=== PATIENT | female | born 1960 | race Caucasian/White ===

== ENCOUNTER 2025-04-18 10:02 | Emergency (ER) | payer OTHER, SELFPAY ==
[2025-04-18 10:07] VITALS: BP 132/69
--- NOTE | 2025-04-18 10:20 | ED.GENMED ---
History of Present Illness
<Jhonathan Bolden PA-C - Last Filed: 04/18/25 13:41>
General
Chief Complaint: Catheter/Tube Problem
Source: patient and records
Time Seen by Provider: 04/18/25 10:09
History of Present Illness
History of Present Illness:
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
tubes she had in place fell out. Patient states that she was supposed to have a follow-up visit on 04/22 for one of the tubes to be removed but is unsure as to which tube was supposed to be removed. Currently denying pain, fevers. has
been doing trach care at home and patient suctions the trach herself.
Past History
<Jhonathan Bolden PA-C - Last Filed: 04/18/25 13:41>
Past History
ED Past Medical History: Cancer and Other (C. Diff)
ED Past Surgical History: Other (Total laryngectomy)
Social History
Tobacco: Smoker
Alcohol: Daily
Drug: None
Personal: Single
Living: with family
Review of Systems
<Jhonathan Bolden PA-C - Last Filed: 04/18/25 13:41>
Review of Systems
All Other Systems: ROS reviewed and negative except as documented in HPI and ROS
Phy Exam
<Jhonathan Bolden PA-C - Last Filed: 04/18/25 13:41>
Physical Exam
Physical Exam:
GENERAL: Alert , in no apparent distress
HEAD: Normocephalic atraumatic
EYE: conjunctiva clear
NECK: Supple, trach in place with clear secretions, well-healing incision to the left lateral neck
ENT: o/p clr, mmm. There is portion of the Dobbhoff drain in patient's left nare and outside of the mouth but no active bleeding
CARDIAC: Regular rate and rhythm
LUNGS: Clear breath sounds bilaterally, no acute respiratory distress, no wheezes/rales/rhonchi
ABDOMEN: PEG tube in place, Scant serosanguineous drainage noted in ESTELA tube
NEUROLOGICAL: Alert and oriented
SKIN: Warm and dry, skin intact.
MUSCULOSKELETAL: well perfused.
PSYCH: Normal and appropriate interaction.
Scores
<Jhonathan Bolden PA-C - Last Filed: 04/18/25 13:41>
Heart Failure Risk
Heart Failure Risk Score: Not Applicable
Heart Score for Chest Pain Patients
STEMI patient?: Not applicable
Withdrawal Assessment of Alcohol
Withdrawal Assessment Completed?: Not applicable
Course
<Jhonathan Bolden PA-C - Last Filed: 04/18/25 13:41>
Orders/Labs/Results
Orders:
Orders
04/18/25 10:15
Ondansetron Injectable [Zofran] 4 mg IV NOW STA
04/18/25 10:47
Ondansetron Orally Disint [Zofran Odt (Orally Disintegrating)] 4 mg PO NOW STA
04/18/25 10:48
Ondansetron HCl [Zofran] 4 mg .ROUTE .[facility]
Vital Signs
Initial and Last Documented VS:
Initial Vital Signs
Temp Pulse Resp BP Pulse Ox
98.1 F 77 16 132/69 97
04/18/25 10:07 04/18/25 10:07 04/18/25 10:07 04/18/25 10:07 04/18/25 10:07
Last Documented Vital Signs
Temp Pulse Resp BP Pulse Ox
98.1 F 77 16 132/69 97
04/18/25 10:07 04/18/25 10:07 04/18/25 10:07 04/18/25 10:07 04/18/25 10:58
<Tiffanie Glasgow MD - Last Filed: 04/18/25 11:32>
Orders/Labs/Results
Orders:
Orders
04/18/25 10:15
Ondansetron Injectable [Zofran] 4 mg IV NOW STA
04/18/25 10:47
Ondansetron Orally Disint [Zofran Odt (Orally Disintegrating)] 4 mg PO NOW STA
04/18/25 10:48
Ondansetron HCl [Zofran] 4 mg .ROUTE .[facility]
Vital Signs
Initial and Last Documented VS:
Initial Vital Signs
Temp Pulse Resp BP Pulse Ox
98.1 F 77 16 132/69 97
04/18/25 10:07 04/18/25 10:07 04/18/25 10:07 04/18/25 10:07 04/18/25 10:07
Last Documented Vital Signs
Temp Pulse Resp BP Pulse Ox
98.1 F 77 16 132/69 97
04/18/25 10:07 04/18/25 10:07 04/18/25 10:07 04/18/25 10:07 04/18/25 10:58
<Jhonathan Bolden PA-C - Last Filed: 04/18/25 13:41>
MDM/Problems Addressed
Differential Diagnosis Includes:
Tube malfunction
Post op complication
No signs sepsis
Dehydration
MDM/Problems Addressed:
64-year-old female presenting to the ER for evaluation, postop total laryngectomy done at [facility] on 1022, this morning reportedly vomited and it appears her Dobbhoff tube is currently out of place. Patient is otherwise in no acute distress.
Hemodynamically stable. had performed trach care already on the patient this morning. She is supposed to have follow-up on April 22 with her surgeon, Dr. Grubbs, and believes that the tube that is currently out of place is supposed to
be removed at that time. I contacted the patient's surgeon, Dr. Grubbs, who confirmed that the patient's Dobbhoff tube is out of place and that we can safely remove the tube and patient can then resume liquids but would need a swallow eval first.
Will order speech therapy consult to assess swallowing and if patient is successful she can be safely discharged home but if not successful will be back in touch with Dr. Grubbs as patient may then require transfer back to their facility for
further management until patient able to tolerate p.o.
Chronic conditions affecting care: Cancer
Acute Exacerbation and/or Progression of Chronic Illness: Cancer
<Jhonathan Bolden PA-C - Last Filed: 04/18/25 13:41>
*Pulse Oximetry
SaO2: 97
Oxygen Mode of Delivery: Room air
Patient hypoxic: no
*Fitness Manager Interpretation
Rate: normal
Heart Rate: 73
Rhythm: sinus
*Critical Care Note
Total Time (30-74mins, 75-104mins- exclusive of procedures): Not Applicable
<Jhonathan Bolden PA-C - Last Filed: 04/18/25 13:41>
Patient Management
Discussion with other providers: Inventory Coordinator
Escalation/DeEscalation of care consider admission/obs:
Following removal of the Dobbhoff tube patient has remained stable and feels comfortable being discharged home. She has follow-up already arranged with her ENT at [facility] on April 22. Aware of return precautions to the
emergency department.
ED Attending Note
<Jhonathan Bolden PA-C - Last Filed: 04/18/25 13:41>
-
Portions of this chart may have been created with voice recognition software.� Occasional wrong word or��sound alike� substitutions may have occurred due to the inherent limitations of voice recognition software.
<Tiffanie Glasgow MD - Last Filed: 04/18/25 11:32>
ED Attending Note
Patient seen and examined by attending physician: Yes
I performed the substantive portion of visit, reviewed & personally made and approve the management plan that is documented in note by myself or ERIS.: Yes
ED Attending Note:
Patient is a 64-year-old woman presenting to the emergency department with tube dislodgment. Patient recently at [facility] for a laryngectomy with multiple drains and G-tube. She states that a tube came out of her mouth when she was vomiting. She is
unsure where it originated from. Per patient's records review it appears that there was a Doppler monitor, dobhoff and ESTELA drain On exam patient is resting comfortably. She does have a NG tube in place with the ESTELA drain as well as her PEG tube.
She does have a tube coming out of her mouth with the monitor at the end of it. Otherwise exam does show benign soft abdomen. She does appear well-hydrated. Will reach out to patient's ENT team to discuss next steps.
Discussed with patient's ENT team. Surgeon states that is a Dobbhoff tube and can be removed. Successfully removed at bedside. Patient can be discharged with outpatient follow up.
Discharge Plan
Departure
Patient Disposition: Home (Routine Discharge)
Date of Disposition: 04/18/25
Time of Disposition: :
Patient with high blood pressure during this ER visit?: No
Discharge Problem:
Displacement of other gastrointestinal prosthetic devices, implants and grafts, initial encounter
Prescriptions:
No Action
cetirizine 10 MG tablet
10 mg PO DAILY
omeprazole [Prilosec] 20 MG capsule,delayed release(DR/EC)
20 mg PO DAILY Qty: 30 0RF
Interventions
Interventions:
*Risk Screen - Suicide Last Done: 04/18/25 10:41
*General Assessment Last Done: 04/18/25 10:07
*Neglect/Abuse Screening Last Done: 04/18/25 10:07
*Nursing Disposition Last Done: 04/18/25 12:24
TR-Ajugwh-Iubxroahmt Assessment Last Done: 04/18/25 10:54
ED-Female Genitourinary Assessment Last Done: 04/18/25 10:54
Discharge Date and Time
Discharge Date/Time: 04/18/25 12:25
Print Language: GUYANESE
[2025-04-18] MEDS: ZOFRAN ODT (ORALLY DISINTEGRATING) 4 MG PO (10:51)
[2025-04-18 10:53] VITALS: BMI 22.9
== END 2025-04-18 12:25 | disposition home or self-care (01) ==
LOC: EMR 10:02
PROVIDERS: EMERGENCY PHYSICIAN Student in an Organized Health Care Education/Training Program; FAMILY PHYSICIAN Internal Medicine
DX: T85.528A Displacement of other gastrointestinal prosthetic devices, implants and grafts, initial encounter (principal); Y92.9 Unspecified place or not applicable; F17.200 Nicotine dependence, unspecified, uncomplicated; Z85.21 Personal history of malignant neoplasm of larynx
CPT/HCPCS: 99282